=== PATIENT | female | born 1980 | race Caucasian/White ===

== ENCOUNTER 2021-07-22 20:44 | Emergency (ER) | payer SELFPAY ==
[~2021-07-22] VITALS: Ht 162.6 cm; Wt 63.8 kg
[2021-07-22] MEDS ORDERED: SODIUM CHLORIDE 0.9% 1,000 ML IV ONE (21:00)
[2021-07-22] MEDS ORDERED: KETOROLAC 15MG/ML VIAL IV ONE (21:15)
[2021-07-22 21:50] LABS: BASOPHILS % 0.5 % (0.0-2.0); EOSINOPHILS % 0.1 % (0.0-5.0); HEMATOCRIT. 39.7 % (36.0-48.0); HEMOGLOBIN. 13.1 g/dL (12.0-16.0); LYMPHOCYTES % 49.4 % (20.0-50.0); MEAN CORPUSCULAR HEMOGLOBIN 28.2 pg (28.0-32.0); MEAN CORPUSCULAR VOLUME 85.3 fL (81.0-99.0); MEAN PLATELET VOLUME 7.9 fl (7.4-10.4); PLATELET 260 x1000/uL (130-400); RED BLOOD CELL COUNT 4.65 mill/uL (4.2-5.4); RED CELL DISTRIBUTION WIDTH 15.9 % (11.6-14.6)
[2021-07-22 21:56] LABS: CHLORIDE 107 mEq/L (98-107)
[2021-07-22 22:01] LABS: ETHANOL BLOOD 203 mg/dL
[2021-07-22 23:00] LABS: CLARITY URINE CLOUDY (CLEAR); COLOR URINE YELLOW (YELLOW); KETONES URINE 1+ (NEGATIVE); LEUKOCYTE ESTERASE URINE NEGATIVE (NEGATIVE); NITRITE URINE NEGATIVE (NEGATIVE); OCCULT BLOOD URINE 2+ (NEGATIVE); PROTEIN URINE 1+ (NEGATIVE); SPECIFIC GRAVITY URINE 1.017 (1.005-1.030); UROBILINOGEN URINE 0.2 E.U./dL (0.2-1.0)
[2021-07-22 23:11] LABS: *BARBITURATES SCREEN URINE NEGATIVE (NEGATIVE); *BENZODIAZEPINES SCREEN URINE NEGATIVE (NEGATIVE)
[2021-07-22 23:12] LABS: CANNABINOID URINE SCREEN NEGATIVE (NEGATIVE); METHADONE URINE SCREEN NEGATIVE (NEGATIVE); OPIATES URINE SCREEN NEGATIVE (NEGATIVE); PHENCYCLIDINE URINE SCREEN NEGATIVE (NEGATIVE)
[2021-07-22 23:13] LABS: *AMPHETAMINES SCREEN URINE PRESUMTIVE POSITIVE (NEGATIVE); *COCAINE SCREEN URINE PRESUMTIVE POSITIVE (NEGATIVE)
[2021-07-23 00:25] LABS: CHLORIDE 111 mEq/L (98-107)
[2021-07-24 06:15] VITALS: BP 110/70
== END 2021-07-24 06:30 | disposition home or self-care (01) ==
LOC: ER 21:24
DX: T38.5X2A Poisoning by other estrogens and progestogens, intentional self-harm, initial encounter (principal); G92.8 Other toxic encephalopathy; R74.01 Elevation of levels of liver transaminase levels; Z20.822 Contact with and (suspected) exposure to COVID-19; Y92.018 Other place in single-family (private) house as the place of occurrence of the external cause
CPT/HCPCS: 36415; 70450; 71045; 80053; 80305; 80307; 80320; 80329; 81003; 85025; 96360; 96361; 99285; J7030; G0480

== ENCOUNTER 2022-03-18 20:48 | Emergency (ER) | payer MEDICAID ==
[~2022-03-18] VITALS: Ht 172.7 cm; Wt 80.0 kg
[2022-03-18] MEDS ORDERED: DEXAMETHASONE 10 MG/ML VIAL PO ONE (22:15)
[2022-03-18] MEDS ORDERED: ACETAMINOPHEN 325MG TABLET PO ONE (22:15)
[2022-03-18] MEDS ORDERED: ONDANSETRON 4MG ODT PO ONE (22:15)
[2022-03-18] MEDS ORDERED: KETOROLAC 60MG/2ML VIAL IM ONE (22:15)
[2022-03-18] MEDS ORDERED: AMOX-494 MT (23:44)
[2022-03-18] MEDS ORDERED: IBUP-2028 MT (23:45)
[2022-03-18] MEDS ORDERED: TOPUD PO (23:45)
[2022-03-18] MEDS ORDERED: CLIN-194 MT (23:50)
[2022-03-19 00:04] VITALS: BP 125/78
== END 2022-03-19 00:05 | disposition home or self-care (01) ==
LOC: ER 20:48
DX: J02.0 Streptococcal pharyngitis (principal); R06.02 Shortness of breath; Z20.822 Contact with and (suspected) exposure to COVID-19; M79.18 Myalgia, other site; R03.0 Elevated blood-pressure reading, without diagnosis of hypertension; Z87.828 Personal history of other (healed) physical injury and trauma; Z98.890 Other specified postprocedural states
CPT/HCPCS: 81025; 87426; 87430; 87804; 93005; 96372; 99284; C9803; J1100; J1885; Q0162

== ENCOUNTER 2024-02-18 09:54 | Emergency (ER) | payer MEDICAID ==
[~2024-02-18] VITALS: Ht 167.6 cm; Wt 65.0 kg
[~2024-02-18 09:54] MED LIST: CLIN-194 MT; IBUP-2028 MT; TOPUD PO
[2024-02-18 09:59] VITALS: O2SAT 96
[2024-02-18 10:22] VITALS: TEMP 36.78072
[2024-02-18] MEDS: FAMOTIDINE 20MG TABLET PO ONE (10:44)
[2024-02-18] MEDS: DEXAMETHASONE 2MG TABLET PO ONE (10:44)
[2024-02-18 12:18] VITALS: BP 107/75; PULSE 68; RESP 19; O2SAT 100
== END 2024-02-18 12:26 | disposition home or self-care (01) ==
LOC: ER 10:49
DX: T78.40XA Allergy, unspecified, initial encounter (principal); X58.XXXA Exposure to other specified factors, initial encounter
CPT/HCPCS: 99283; J8540